=== PATIENT | male | born 1990 | race Caucasian/White ===

== ENCOUNTER 2020-09-03 13:26 | Emergency (ER) | payer OTHER ==
--- NOTE | 2020-09-03 13:56 | EDM.PDOC ---
ED HPI GENERAL MEDICAL PROBLEM - General Chief Complaint: Upper Extremity Injury/Pain Stated Complaint: RIGHT HAND AUGER INJURY Time Seen by Provider: 09/03/20 13:53 Source of Information: Reports: Patient, Old Records, RN History Limitations: Reports: No Limitations - History of Present Illness INITIAL COMMENTS - FREE TEXT/NARRATIVE: 30 yo male was drilling holes with an ice auger and abruptly the auger caught and spun his R hand/wrist around causing pain. Here for eval. No other areas of concern. Onset: Today, Sudden Onset Date: 09/03/20 Duration: Minutes: Location: Reports: Upper Extremity, Right Quality: Reports: Ache Severity: Moderate Improves with: Reports: Rest Worsens with: Reports: Movement Context: Reports: Trauma Associated Symptoms: Reports: No Other Symptoms Treatments EPILEPSY PHYSICIAN: Reports: Other (see below) (none) - Related Data Allergies Allergy/AdvReac Type Severity Reaction Status Date / Time No Known Allergies Allergy Verified 09/03/20 13:47 Home Meds: Home Meds Acetaminophen/oxyCODONE [Percocet 325-5 MG] 1 each PO Q4H PRN #15 tab 09/03/20 [Rx] Past Medical History - Past Surgical History GI Surgical History: Reports: Appendectomy Musculoskeletal Surgical History: Reports: Arthroscopic Knee Social & Family History - Tobacco Use Tobacco Use Status *Q: Never Tobacco User Review of Systems - Review of Systems Review Of Systems: See Below Constitutional: Reports: No Symptoms Musculoskeletal: Reports: Hand Pain (Right), Joint Pain (R wrist) Skin: Reports: No Symptoms Neurological: Reports: No Symptoms ED EXAM, GENERAL - Physical Exam Exam: See Below Exam Limited By: No Limitations General Appearance: Alert, WD/WN, No Apparent Distress Extremities: Normal Inspection, No Pedal Edema, Limited Range of Motion (due to pain of the R hand and wrist. ). No: Normal Range of Motion, Non-Tender, Pedal Edema, Increased Warmth, Redness Neurological: Alert, Oriented, CN II-XII Intact, Normal Cognition, No Mot or/Sensory Deficits Psychiatric: Normal Affect, Normal Mood Skin Exam: Warm, Dry, Intact, Normal Color, No Rash ED TRAUMA EXTREMITY PROCEDURES - Splinting Right Upper Extremity Splint Site: R wrist/hand Pre-Procedure NV Status: Normal Post-Procedure NV Status: Normal Splint Material: Other (Ortho Glass) Splint Design: Volar Applied & Form Fitted By: Provider Provider Post-Splint Application NV Check: NV Status Normal, Good Position Complications: No Complication Description: 12 inches of 4 inch Orthoglass secured with 2 and 3 inch TARA's Course - Vital Signs Last Recorded V/S: Last Vital Signs Temp 36.3 C 09/03/20 13:49 Pulse 85 09/03/20 13:49 Resp 16 09/03/20 13:49 BP 128/76 09/03/20 13:49 Pulse Ox 98 09/03/20 13:49 - Orders/Labs/Meds Meds: Medications Discontinued Medications Generic Name Dose Route Start Last Admin Trade Name Freq PRN Reason Stop Dose Admin Oxycodone/Acetaminophen 1 tab 09/03/20 14:20 09/03/20 14:26 Percocet 325-5 Mg PO 09/03/20 14:21 1 tab ONETIME STA Administration - Radiology Interpretation Free Text/Narrative:: R hand and wrist [id number] fx of 4th metacarpal Departure - Departure Time of Disposition: 14:40 Disposition: Home, Self-Care 01 Condition: Fair Clinical Impression: Fracture of fourth metacarpal bone of right hand Qualifiers: Encounter type: initial encounter Fracture type: closed Metacarpal location: shaft Fracture alignment: nondisplaced Qualified Code(s): S62.354A - Nondisplaced fracture of shaft of fourth metacarpal bone, right hand, initial encounter for closed fracture - Discharge Information *PRESCRIPTION DRUG MONITORING PROGRAM REVIEWED*: No *COPY OF PRESCRIPTION DRUG MONITORING REPORT IN PATIENT ESMER: No Instructions: Metacarpal Fracture, [id number] Referrals: PCP,None [Primary Care Provider] - Forms: ED Department Discharge Additional Instructions: Keep hand elevated and splinted. F/U with orthopedics. Take ibuprofen 600 mg every 6 hrs with food and either acetaminophen OR Percocet for pain relief. Sepsis Event Note (ED) - Evaluation Sepsis Screening Result: No Definite Risk - Focused Exam Vital Signs: Vital Signs Temp Pulse Resp BP Pulse Ox 09/03/20 13:49 36.3 C 85 16 128/76 98 09/03/20 13:46 36.3 C 85 16 128/76 98
[2020-09-03] MEDS ORDERED: Acetaminophen/oxyCODONE 325-5 MG Tab PO STA (14:20)
--- NOTE | 2020-09-03 14:28 | CR ---
Hand Comp Min 3V Rt, Wrist Comp Min 3V Rt CLINICAL HISTORY: Trauma FINDINGS: There is an oblique fracture of the fourth metacarpal which is minimally displaced. Fracture line extends to the proximal articulation. IMPRESSION: Minimally displaced oblique fracture of the fourth metacarpal. Hand Comp Min 3V Rt, Wrist Comp Min 3V Rt CLINICAL HISTORY: Trauma FINDINGS: There is no acute fracture or dislocation within the right wrist. Articular surfaces are smooth. Impression: Negative
== END 2020-09-03 15:15 | disposition home or self-care (01) ==
LOC: JP.ED 13:26
DX: S62.354A Nondisplaced fracture of shaft of fourth metacarpal bone, right hand, initial encounter for closed fracture (principal); W23.0XXA Caught, crushed, jammed, or pinched between moving objects, initial encounter
CPT/HCPCS: 29125; 73110; 73130; 99283; A9270

== ENCOUNTER 2022-12-14 09:10 | Emergency (ER) | payer OTHER ==
[2022-12-14] MEDS ORDERED: Lidocaine 1% 10 ML MDV INJECT ONE (10:06)
[2022-12-14] MEDS ORDERED: Bacitracin Oint 1 GM U/D Packet TOP ONE (10:08)
[2022-12-14] MEDS ORDERED: Diphtheria,Pertussis(Acell),Tetanus Vaccine 0.5 ML Syringe IM ONE (10:20)
[2022-12-14] MEDS ORDERED: Acetaminophen 325 MG Tab PO ONE (11:16)
== END 2022-12-14 11:22 | disposition home or self-care (01) ==
LOC: JP.ED 09:10
DX: S01.01XA Laceration without foreign body of scalp, initial encounter (principal); S01.81XA Laceration without foreign body of other part of head, initial encounter; Z23 Encounter for immunization; W22.8XXA Striking against or struck by other objects, initial encounter; Y92.89 Other specified places as the place of occurrence of the external cause; Y99.0 Civilian activity done for income or pay
CPT/HCPCS: 12013; 12015; 90471; 90715; 99282; 99283; A9270